=== PATIENT | male | born 1995 | race African-American/Black ===

== ENCOUNTER 2020-04-19 12:49 | Emergency (ER) | payer OTHER ==
[~2020-04-19] VITALS: Ht 172.7 cm; Wt 65.9 kg
[2020-04-19 12:49] VITALS: BP 132/71
[2020-04-19] MEDS ORDERED: ONDA4TAB6 PO (13:32)
== END 2020-04-19 13:57 | disposition home or self-care (01) ==
LOC: M ED 12:49
DX: B34.9 Viral infection, unspecified (principal); Z20.828 Contact with and (suspected) exposure to other viral communicable diseases; R11.0 Nausea; R53.83 Other fatigue
CPT/HCPCS: 99282; U0003